=== PATIENT | male | born 1970 | race Caucasian/White ===

== ENCOUNTER 2017-10-26 16:02 | Emergency (ER) | payer OTHER ==
[~2017-10-26] VITALS: Ht 172.7 cm; Wt 106.8 kg
[2017-10-26 16:45] VITALS: Ht 172.7 cm; Wt 106.8 kg
[2017-10-26] MEDS ORDERED: PROZAC40 MG PO (16:46)
[2017-10-26] MEDS ORDERED: MOBIC7.5 MG PO (16:46)
[2017-10-26 19:38] VITALS: BP 137/88
== END 2017-10-26 19:38 | disposition home or self-care (01) ==
LOC: D.ER 16:02
DX: G43.909 Migraine, unspecified, not intractable, without status migrainosus (principal); F17.200 Nicotine dependence, unspecified, uncomplicated